=== PATIENT | male | born 1970 | race Caucasian/White ===

== ENCOUNTER 2017-02-01 09:01 | Day surgery (SDC) | payer SELFPAY ==
[~2017-02-01 09:01] MED LIST: Lactated Ringers 1,000 ML IV SCH
[2017-02-01] MEDS ORDERED: Albuterol/Ipratropium 3.0-0.5 MG/3 ML Neb Soln NEB ONE (10:21)
[2017-02-01] MEDS ORDERED: Acetaminophen 1,000 MG in Premix Bag 1 BAG IV ONE (10:25)
[2017-02-01] MEDS ORDERED: Ketorolac 30 MG/ML SDV ONE (11:25)
[2017-02-01] MEDS ORDERED: fentaNYL 100 MCG/2 ML SDV ONE (11:26)
[2017-02-01] MEDS ORDERED: Ketamine 200 MG/20 ML MDV ONE (11:26)
[2017-02-01] MEDS ORDERED: Midazolam 1 MG/ML 2 ML SDV ONE (11:26)
[2017-02-01] MEDS ORDERED: Propofol 200 MG/20 ML SDV ONE (11:26)
[2017-02-01] MEDS ORDERED: Succinylcholine 200 MG/10 ML MDV ONE (11:32)
[2017-02-01] MEDS ORDERED: ceFAZolin 1 GM Vial ONE (11:41)
[2017-02-01] MEDS ORDERED: Bupivacaine 0.25%/EPINEPHrine 1:200,000 30 ML SDV ONE (11:50)
[2017-02-01] MEDS ORDERED: Bupivacaine 0.25%/EPINEPHrine 1:200,000 30 ML SDV INFILT ONE ×2 (12:04)
[2017-02-01] MEDS ORDERED: Morphine 2 MG/ML Syringe IVPUSH PRN (13:21)
[2017-02-01] MEDS ORDERED: Acetaminophen/oxyCODONE 325-5 MG Tab PO PRN (13:22)
[2017-02-01] MEDS ORDERED: Ondansetron 4 MG/2 ML SDV IVPUSH PRN (13:31)
[2017-02-01 15:14] VITALS: BP 133/84
--- NOTE | 2017-02-01 18:25 | OR ---
PREOPERATIVE DIAGNOSIS: Left inguinal hernia. POSTOPERATIVE DIAGNOSIS: Left indirect inguinal hernia. PROCEDURE PROPOSED: Left inguinal hernia repair, tension free with mesh. PROCEDURE DONE: Left inguinal hernia repair, tension free with mesh. INDICATION: This is a 46-year-old gentleman, who has a fairly significant symptomatic left inguinal hernia. He comes in for elective repair. TECHNIQUE AND FINDINGS: The patient was brought to the operative suite, given a general endotracheal anesthetic. The left groin had been trimmed. He was then sterilely prepped and draped. An oblique incision was made in the left groin after locally anesthetizing the skin with 0.25% Marcaine with epinephrine. Dissection was carried down through the subcutaneous tissue. A self-retaining retractor was inserted. The external oblique fascia was opened along its direction of fibers. The ilioinguinal nerve was found and isolated and preserved throughout the dissection. The cord was freed up and a [place] drain passed around it for traction. The patient was found to have an indirect hernia. Fairly large alongside the cord was freed up from the cord structures and reduced through the internal ring and held in place with a plug of mesh that was anchored with interrupted 0 Ethilon sutures. A flap keyhole piece of mesh was then placed over the entire inguinal floor, fashioned, and shaped appropriately to go around the inguinal cord. It was anchored medially to the symphysis pubis, inferiorly to the inguinal ligament, superiorly to the internal oblique fascia, and then placed around the cord and anchored with couple stitches externally. The nerve and cord were placed back in the normal position and the external oblique fascia was closed over the cord with a running 3-0 Vicryl. The subcutaneous tissue was then reapproximated with interrupted 3-0 Vicryl, the skin closed with subcuticular stitch of 4-0 Vicryl, and a sterile dressing was applied. He tolerated the procedure well. Minimal blood loss. He was awakened and taken to the recovery room in good condition. SCM: 02/01/2017 12:46:56 MODL: 02/01/2017 18:11:36 /[id number]
== END 2017-02-01 14:59 | disposition home or self-care (01) ==
LOC: VM.SDS 09:01
PROVIDERS: ATTEND Surgery
DX: K40.90 Unilateral inguinal hernia, without obstruction or gangrene, not specified as recurrent (principal); Z88.8 Allergy status to other drugs, medicaments and biological substances
CPT/HCPCS: 49505; 94640; A9270; C1781; J0690; J1885; J2250; J2704; J3010; J7120; 00820; J0330

== ENCOUNTER 2022-04-27 13:22 | Emergency (ER) | payer SELFPAY ==
[2022-04-27 14:00] LABS: CHLORIDE,CL 103 mmol/L (98-107); SODIUM,NA 139 mmol/L (136-145)
[2022-04-27 14:01] LABS: ESTIMATED GFR > 60
[2022-04-27 15:42] VITALS: BP 122/83; PULSE 93
== END 2022-04-27 15:00 | disposition short-term general hospital (02) ==
LOC: VM.ED 13:22
DX: J93.9 Pneumothorax, unspecified (principal); Z88.8 Allergy status to other drugs, medicaments and biological substances; Z72.0 Tobacco use
CPT/HCPCS: 71046; 80053; 82550; 83615; 84484; 85025; 85379; 86140; 93005; 93010; 99284; 99285-25